=== PATIENT | male | born 1965 | race African-American/Black ===

== ENCOUNTER 2018-12-22 08:16 | Inpatient (IN) ==
[2018-12-22] MEDS ORDERED: HYDROmorphone 2 MG/1 ML VIAL IV STA (09:58)
[2018-12-22] MEDS ORDERED: ONDANSETRON 4 MG/2 ML VIAL IV STA (09:58)
[2018-12-22] MEDS ORDERED: ACETAMINOPHEN 325 MG TABLET PO PRN (10:16)
[2018-12-22] MEDS ORDERED: ONDANSETRON 4 MG/2 ML VIAL IV PRN (10:16)
[2018-12-22 10:48] LABS: Basophils % 0.2 % (0.0-0.8); Eosinophils % 0.5 % (0.00-10.9); Hematocrit 43.5 VOL% (42.0-52.0); Immature Granulocytes % 0.5 %; Immature Granulocytes Absolute 0.04 #; Lymphocytes # 1.7 10*3/uL (1.4-4.0); Lymphocytes % 20.8 % (21.2-54.2); Mean Corpuscular HGB Conc 32.2 GM/DL (32-36); Mean Corpuscular Volume 93.1 FL (87-102); Mean Platelet Volume 9.1 FL (9.6-12.0); Monocytes % 13.9 % (1.7-12.7); Neutrophils % 64.1 % (38.7-73.9); Platelet Count 293 T/CUMM (130-400); Red Blood Count 4.67 MC/CUMM (3.8-5.5); Red Cell Distribution Width 13.4 % (9.3-17.3); White Blood Count 8.3 T/CUMM (4-12)
[2018-12-22 11:19] LABS: Calcium 8.6 MG/DL (8.5-10.1); Osmolality,Calculated 279.3 MOS/KG (273-304)
[2018-12-22] MEDS: MORPHINE 4 MG/1 ML VIAL IV PRN ×2 (13:43→21:01)
[2018-12-23] MEDS: PANTOPRAZOLE 40 MG TABLET PO SCH (08:45)
[2018-12-23] MEDS ORDERED: ALBUTEROL/IPRATROPIUM 3 ML NEB RESP TX PRN (12:21)
[2018-12-23] MEDS: ALBUTEROL/IPRATROPIUM 3 ML NEB RESP TX SCH ×2 (13:00→19:23)
[2018-12-23] MEDS: ERYTHROMYCIN 0.5% OPHT OINT 1 GM TUBE BOTH EYES SCH ×3 (14:07→21:10)
[2018-12-23] MEDS ORDERED: MORPHINE 4 MG/1 ML VIAL IV PRN ×2 (15:24→15:25)
[2018-12-23] MEDS ORDERED: KETOROLAC 10 MG TABLET PO ONE (15:24)
[2018-12-23] MEDS ORDERED: BISACODYL 5 MG TABLET PO PRN (15:33)
[2018-12-23] MEDS: KETOROLAC 10 MG TABLET PO SCH (18:44)
[2018-12-23] MEDS: GABAPENTIN 100 MG CAPSULE PO SCH (21:31)
[2018-12-24] MEDS: KETOROLAC 10 MG TABLET PO SCH ×2 (02:31→07:27)
[2018-12-24] MEDS: ALBUTEROL/IPRATROPIUM 3 ML NEB RESP TX SCH ×2 (07:45)
[2018-12-24] MEDS: ERYTHROMYCIN 0.5% OPHT OINT 1 GM TUBE BOTH EYES SCH (09:07)
[2018-12-24] MEDS: PANTOPRAZOLE 40 MG TABLET PO SCH (09:17)
[2018-12-24] MEDS: GABAPENTIN 100 MG CAPSULE PO SCH (09:17)
[2018-12-24 11:52] VITALS: BP 119/69
== END 2018-12-24 11:45 | disposition home or self-care (01) | DRG 200 ==
LOC: EDBD → EDUNIT# → N.ED 08:16 → N.EDINP 10:16 → N.3E 11:29
PROVIDERS: ADMIT Surgery; ATTEND Surgery